=== PATIENT | female | born 1950 ===

== ENCOUNTER 2016-12-04 13:51 | Emergency (ER) | payer MEDICARE, MEDICAID ==
[2016-12-04 14:04] VITALS: TEMP 98; BMI 48.7
--- NOTE | 2016-12-04 14:38 | C.PDOC ---
History Of Present Illness Patient is a 66 y/o F with hx of back problems, presenting with R sided paraspinal back pain. She is also complaining of frequency. Denies trauma. Denies urinary or bowel incontinence. Denies fever. Denies weakness, numbness or tingling. Time Seen by Provider: 12/04/16 14:12 Chief Complaint (Nursing): Back Pain Past Medical History Vital Signs: Last Vital Signs Temp 98 F 12/04/16 14:04 Pulse 70 12/04/16 16:41 Resp 16 12/04/16 16:41 BP 160/85 H 12/04/16 16:41 Pulse Ox 98 12/04/16 16:41 - Medical History PMH: Anxiety, Arthritis, Asthma, CVA, Diabetes, Gastritis, HTN, Hypercholesterolemia, Sleep Apnea Denies: Chronic Kidney Disease Surgical History: Cholecystectomy, Endoscopy Family History: States: Unknown Family Hx - Social History Hx Tobacco Use: No Hx Alcohol Use: No Hx Substance Use: No - Immunization History Hx Tetanus Toxoid Vaccination: No Hx Influenza Vaccination: Yes Hx Pneumococcal Vaccination: No Review Of Systems Constitutional: Negative for: Fever, Chills Cardiovascular: Negative for: Chest Pain Respiratory: Negative for: Cough, Shortness of Breath, SOB with Excertion Gastrointestinal: Negative for: Nausea, Vomiting, Abdominal Pain, Constipation Genitourinary: Positive for: Frequency. Negative for: Dysuria, Incontinence Musculoskeletal: Positive for: Back Pain Skin: Negative for: Rash Neurological: Negative for: Weakness, Numbness, Headache Physical Exam - Physical Exam Appears: Well, Non-toxic, No Acute Distress Skin: Normal Color, Warm, Dry Head: Atraumatic, Normacephalic Eye(s): bilateral: Normal Inspection, PERRL, EOMI Neck: Normal, Normal ROM, Supple Chest: Symmetrical Cardiovascular: Rhythm Regular Respiratory: Normal Breath Sounds, No Rales, No Rhonchi, No Wheezing Gastrointestinal/Abdominal: Soft, No Tenderness, No Mass, No Distention Back: No CVA Tenderness, No Vertebral Tenderness, No Decreased ROM, Muscle Spasm (R paraspinal back) Extremity: Normal ROM Neurological/Psych: Oriented x3, Normal Speech, Normal Cranial Nerves, Normal Motor, Normal Sensation Gait: Steady ED Course And Treatment O2 Sat by Pulse Oximetry: 96 Medical Decision Making Medical Decision Making: UA shows hematuria CT shows "2.1 cm low-density rounded lesion within the medial right inferior hepatic lobe , may be cystic. Recommend further evaluation with ultrasound. Question subtle nodular hepatic contour ; correlate for possibility of cirrhosis. Diverticulosis without CT evidence of acute diverticulitis. Cholecystectomy. " Patient made aware of CT results. She reports that back pain is improved after medication. Patient ambulating around the ED without issue. Instructed to follow-up with PMD Disposition - Disposition Disposition: HOME/ ROUTINE Disposition Time: 16:33 Condition: GOOD Additional Instructions: Follow up with PMD for hepatic lesion found on CT. Return to ED if condition worsens. Take medication as prescribed by PMD for back pain. Prescriptions: Cyclobenzaprine [Flexeril] 5 mg PO TID #20 tab Instructions: Chronic Back Pain (ED) - Clinical Impression Clinical Impression: Low back pain, Hepatic lesion, Hematuria
[2016-12-04 14:53] LABS: SQUAMOUS EPITHIAL 1 /hpf (0-5); URINE BILIRUBIN NEGATIVE (NEGATIVE); URINE BLOOD NEGATIVE (NEGATIVE); URINE CLARITY Clear (Clear); URINE COLOR Yellow (YELLOW); URINE GLUCOSE (UA) NORMAL (Normal); URINE LEUKOCYTE ESTERASE NEG Leu/uL (Negative); URINE NITRATE NEGATIVE (NEGATIVE); URINE PROTEIN 1+ mg/dL (NEGATIVE); URINE UROBILINOGEN NORMAL mg/dL (0.2-1.0)
--- NOTE | 2016-12-04 16:30 | CT ---
PROCEDURE: CT Abdomen and Pelvis without Oral or IV contrast. HISTORY: hematuria COMPARISON: Abdominal ultrasound performed 09/17/15 TECHNIQUE: Contiguous axial images of the abdomen and pelvis. No oral or IV contrast administered. Coronal and Sagittal reformats generated and reviewed. Radiation dose: Total exam DLP = 1281.44 mGy-cm. This CT exam was performed using one or more of the following dose reduction techniques: Automated exposure control, adjustment of the mA and/or kV according to patient size, and/or use of iterative reconstruction technique. FINDINGS: There is limited evaluation of the solid organs without the administration of IV contrast. LOWER THORAX: No visible consolidation, pleural effusion, or pneumothorax. Partially imaged cardiomegaly. LIVER: 2.1 cm low-density rounded lesion within the medial right inferior hepatic lobe (series 3, image 69), measures approximately 2 HU, possibly cystic. Question subtle nodular hepatic contour. GALLBLADDER AND BILE DUCTS: Cholecystectomy. PANCREAS: Fatty atrophy of the pancreas. SPLEEN: Unremarkable unenhanced appearance of the spleen. ADRENALS: Unremarkable unenhanced appearance of the spleen. KIDNEYS AND URETERS: No hydronephrosis or obstructing renal calculus. BLADDER: Decompressed urinary bladder precludes adequate evaluation. REPRODUCTIVE: Uterus is absent, presumably due to hysterectomy. APPENDIX: The appendix appears within normal limits of caliber. No secondary signs of acute appendicitis. BOWEL: The stomach is nondistended. Lack of oral contrast limits evaluation for bowel pathology. The bowel loops appear within normal limits of caliber without evidence of intestinal obstruction. Diverticulosis without CT evidence of acute diverticulitis. PERITONEUM: No significant free fluid. No definite free air. LYMPH NODES: No bulky lymphadenopathy identified. VASCULATURE: No aortic aneurysm. BONES: Degenerative changes of the spine. Vacuum disc phenomenon at L4-L5 and L5-S1. OTHER FINDINGS: 11 mm fat containing umbilical hernia. IMPRESSION: 2.1 cm low-density rounded lesion within the medial right inferior hepatic lobe , may be cystic. Recommend further evaluation with ultrasound. Question subtle nodular hepatic contour ; correlate for possibility of cirrhosis. Diverticulosis without CT evidence of acute diverticulitis. Cholecystectomy. Additional findings as above.
[2016-12-04 16:42] VITALS: BP 160/85; PULSE 70; RESP 16
[2016-12-05 07:40] VITALS: O2SAT 96
== END 2016-12-04 16:41 | disposition home or self-care (01) ==
LOC: C.ER 13:51
DX: K76.9 Liver disease, unspecified (principal); R31.9 Hematuria, unspecified; M54.5 Low back pain
CPT/HCPCS: 74176; 81001; 96372; 99283; J1885

== ENCOUNTER 2017-05-08 14:46 | Emergency (ER) | payer MEDICARE, MEDICAID ==
[2017-05-08 14:46] VITALS: BMI 48.7
[2017-05-08 14:57] VITALS: O2SAT 99
--- NOTE | 2017-05-08 15:08 | C.PDOC ---
History Of Present Illness REQUESTING TX FOR PERSIST ABN OUTPT LAB TESTING. PS S/P OUTPT TESTING ON 09/18 AND 04/25 SHOWING PERSIST +RPR, CHLAMYDIA. PER REFERRAL LETTER 05/02, PT RECEIVED BICILLIN LA 09/2016. PENDING APPT DR CONNOLLY 06/21 "BUT I CAN'T WAIT THAT LONG". OTHERWISE ASYMPT PMD MUSHAYANDEBVU EXAM PSYCH ANXIOUS BUT CALM, CONSOLABLE REMAINDER NEG Time Seen by Provider: 05/08/17 15:01 Chief Complaint (Nursing): Female Genitourinary History Per: Patient History/Exam Limitations: no limitations Onset/Duration Of Symptoms: Days Past Medical History Reviewed: Historical Data, Nursing Documentation, Vital Signs Vital Signs: Last Vital Signs Temp 97.8 F 05/08/17 14:52 Pulse 78 05/08/17 14:52 Resp 16 05/08/17 14:52 BP 170/100 H 05/08/17 14:52 Pulse Ox 99 05/08/17 15:23 - Medical History PMH: Anxiety, Arthritis, Asthma, CVA, Diabetes, Gastritis, HTN, Hypercholesterolemia, Sleep Apnea Surgical History: Cholecystectomy, Endoscopy Family History: States: No Known Family Hx - Social History Hx Tobacco Use: No Hx Alcohol Use: No Hx Substance Use: No - Immunization History Hx Tetanus Toxoid Vaccination: No Hx Influenza Vaccination: Yes Hx Pneumococcal Vaccination: No Review Of Systems Except As Marked, All Systems Reviewed And Found Negative. Respiratory: Negative for: Shortness of Breath Gastrointestinal: Negative for: Nausea, Vomiting, Abdominal Pain Skin: Negative for: Rash Physical Exam - Physical Exam Appears: Non-toxic, No Acute Distress, Other ((+) anxious but calm) Head: Atraumatic, Normacephalic Respiratory: Normal Breath Sounds Back: Normal Inspection Extremity: Normal ROM Neurological/Psych: Oriented x3, Normal Speech ED Course And Treatment O2 Sat by Pulse Oximetry: 99 (RA) Pulse Ox Interpretation: Normal Reevaluation Time: 15:21 Reassessment Condition: Unchanged (PT ADVISED OF D/W DR CONNOLLY. LAST SEX 4 YRS AGO, NO LONGER INVOLVED W PARTNER. DENIES PRIOR TX FOR CHLAMYDIA.) - Physician Consult Information Time Consulting Physician Contacted: 15:14 Physician Contacted: Ian Connolly Outcome Of Conversation: AWARE OF ER FINDINGS: STATES PT CAN WAIT UNTIL EVAL IN JUN. NO ADDITIONAL RPR TESTING NEEDED. ADVISES URINE GC TESTING, CAN BE FU IN OFFICE. Medical Decision Making Medical Decision Making: PLAN: * Chlamydia GC * Zithromycin PO * Rocephin IM Disposition Counseled Patient/Family Regarding: Diagnosis, Need For Followup - Disposition Referrals: [facility] [Outside] [facility] [Outside] Disposition: HOME/ ROUTINE Disposition Time: 15:22 Condition: IMPROVED Additional Instructions: JAILENE ANGELA ESTABLECIDO. Instructions: Chlamydia (ED) Forms: [employer] (Israeli) Print Language: FAROESE - Clinical Impression Clinical Impression: Abnormal blood test - Scribe Statement The provider has reviewed the documentation as recorded by the Melodyibelissa Bryan Provider Attestation: All medical record entries made by the Melodyibe were at my direction and personally dictated by me. I have reviewed the chart and agree that the record accurately reflects my personal performance of the history, physical exam, medical decision making, and the department course for this patient. I have also personally directed, reviewed, and agree with the discharge instructions and disposition.
[2017-05-08] MEDS ORDERED: cefTRIAXone (Rocephin) 250 mg Inj IM STA (15:23)
[2017-05-08 16:38] VITALS: BP 148/91; PULSE 62; RESP 18; TEMP 98.4
== END 2017-05-08 16:38 | disposition home or self-care (01) ==
LOC: C.ER 14:46
DX: Z00.01 Encounter for general adult medical examination with abnormal findings (principal); E11.9 Type 2 diabetes mellitus without complications; E78.00 Pure hypercholesterolemia, unspecified; I10 Essential (primary) hypertension
CPT/HCPCS: 87491; 87591; 96372; 99284; J0696

== ENCOUNTER 2017-05-24 06:57 | Emergency (ER) | payer MEDICARE, MEDICAID ==
[2017-05-24 06:57] VITALS: BMI 48.7
--- NOTE | 2017-05-24 07:49 | C.PDOC ---
History Of Present Illness 66-year-old female, presents to the emergency department with complaints of epigastric abdominal pain since last night, which she states radiates to back and is associated with several episodes of vomiting. Denies chest pain, shortness of breath, diarrhea, fever, recent travel or any other associated symptoms. No other complaints at this time. Time Seen by Provider: 05/24/17 07:35 Chief Complaint (Nursing): Abdominal Pain History Per: Patient History/Exam Limitations: no limitations Onset/Duration Of Symptoms: Days Current Symptoms Are (Timing): Still Present Past Medical History Reviewed: Historical Data, Nursing Documentation, Vital Signs Vital Signs: Last Vital Signs Temp 98.9 F 05/24/17 10:03 Pulse 82 05/24/17 10:03 Resp 18 05/24/17 10:03 BP 158/82 H 05/24/17 10:03 Pulse Ox 99 05/24/17 10:50 - Medical History PMH: Anxiety, Arthritis, Asthma, CVA, Diabetes, Gastritis, HTN, Hypercholesterolemia, Sleep Apnea Surgical History: Cholecystectomy, Endoscopy Family History: States: Unknown Family Hx - Social History Hx Tobacco Use: No Hx Alcohol Use: No Hx Substance Use: No - Immunization History Hx Tetanus Toxoid Vaccination: No Hx Influenza Vaccination: Yes Hx Pneumococcal Vaccination: No Review Of Systems Except As Marked, All Systems Reviewed And Found Negative. Constitutional: Negative for: Fever, Chills Respiratory: Negative for: Shortness of Breath Gastrointestinal: Positive for: Nausea, Vomiting, Abdominal Pain Musculoskeletal: Positive for: Back Pain Neurological: Negative for: Weakness, Numbness, Headache, Dizziness Physical Exam - Physical Exam Appears: Non-toxic, No Acute Distress Skin: Warm, Dry, No Rash Head: Atraumatic, Normacephalic Eye(s): bilateral: Normal Inspection, PERRL Nose: Normal Oral Mucosa: Moist Lips: Normal Appearing Neck: Normal ROM Chest: Symmetrical Cardiovascular: Rhythm Regular, No Murmur Respiratory: Normal Breath Sounds, No Accessory Muscle Use Gastrointestinal/Abdominal: Soft, Tenderness (+mild inconsistent epigastric tenderness ), Other (Obese) Back: No CVA Tenderness, No Paraspinal Tenderness Extremity: Normal ROM Neurological/Psych: Oriented x3, Normal Speech ED Course And Treatment - Laboratory Results Result Diagrams: 05/24/17 08:17 05/24/17 08:17 ECG: Interpreted By Me ECG Rhythm: Sinus Rhythm ECG Interpretation: Normal Interpretation Of ECG: normal axis, normal R wave progression, normal ST-T waves Rate From EC O2 Sat by Pulse Oximetry: 99 (on RA) Pulse Ox Interpretation: Normal Medical Decision Making Medical Decision Making: Plan: * CT Abd/Pel * BNP, CMP, Lipase, SHANELL Panel * CBC * Chest X-Ray * Morphine, Pepcid, IVF, Zofran * Urinalysis * Reassess and Disposition Disposition - Disposition Referrals: Haja Dempsey MD [Staff Provider] - Yvette Bills MD [Staff Provider] - Disposition: HOME/ ROUTINE Disposition Time: 11:56 Condition: GOOD Additional Instructions: Follow up with the medical doctor within 1-2 days. Return if worsened. Prescriptions: Ibuprofen [Motrin] 1 tab PO TID PRN #30 tab PRN Reason: Pain oxyCODONE/Acetaminophen [Percocet 5/325 mg Tab] 1 tab PO QID PRN #10 tab PRN Reason: Pain Tamsulosin [Flomax] 0.4 mg PO DAILY #10 cap Instructions: Renal Colic (GEN) Forms: [employer] (Azerbaijani) - Clinical Impression Clinical Impression: Renal colic - Scribe Statement The provider has reviewed the documentation as recorded by the Scribe (Sarkis Hairston) All medical record entries made by the Scribe were at my direction and personally dictated by me. I have reviewed the chart and agree that the record accurately reflects my personal performance of the history, physical exam, medical decision making, and the department course for this patient. I have also personally directed, reviewed, and agree with the discharge instructions and disposition.
[2017-05-24] MEDS ORDERED: Sodium Chloride 0.9% 1,000 ML IV ONE (08:08)
[2017-05-24 08:22] LABS: BASO % 0.3 % (0.0-2.0); EOS % 0.8 % (0.0-4.0); HEMOGLOBIN 12.5 g/dL (11.0-16.0); LYMPH # 0.7 K/uL (1.0-4.3); LYMPH % 12.9 % (20.0-40.0); MEAN CORPUSCULAR HEMOGLOBIN 25.6 pg (27.0-31.0); MEAN CORPUSCULAR HGB CONC 32.4 g/dL (33.0-37.0); MEAN PLATELET VOLUME 8.7 fL (7.2-11.7); MONO # 0.6 K/uL (0.0-0.8); MONO % 10.8 % (0.0-10.0); NEUT # 4.3 K/uL (1.8-7.0); NEUT % 75.2 % (50.0-75.0); RBC 4.86 Mil/uL (3.80-5.20); RED CELL DISTRIBUTION WIDTH 14.7 % (11.5-14.5); WHITE BLOOD COUNT 5.7 K/uL (4.8-10.8)
[2017-05-24 08:25] LABS: MEAN CELL VOLUME 79.2 fL (81.0-99.0)
[2017-05-24] MEDS ORDERED: Sodium Chloride 0.9% 1,000 ML ONE (08:28)
[2017-05-24 08:43] LABS: ALB/GLOB RATIO 1.2 (1.0-2.1); ALBUMIN 4.1 g/dL (3.5-5.0); ALT/SGPT 29 U/L (9-52); AST/SGOT 19 U/L (14-36); BLOOD UREA NITROGEN 11 mg/dL (7-17); CALCIUM 7.9 mg/dl (8.6-10.4); GFR AFRICAN-AMERICAN > 60; GFR NON-AFRICAN AMERICAN > 60; LIPASE 43 U/L (23-300)
--- NOTE | 2017-05-24 09:05 | RAD ---
Chest x-ray single frontal view History: Cough. Comparison: 08/20/2014 Findings: Mild venous congestion. Cardiomegaly. Degenerative changes in the spine and shoulders. Question loose osteochondral bodies at right glenohumeral joint space. Question mild calcific tendinopathy of the left proximal humerus. Impression: Mild venous congestion. Cardiomegaly. Degenerative changes in the spine and shoulders.
[2017-05-24 10:34] LABS: B-TYPE NATRIURETIC PEPTIDE 316 pg/mL (0-900); CK-MB 0.29 ng/mL (0.0-3.38)
[2017-05-24 10:44] LABS: SQUAMOUS EPITHIAL < 1 /hpf (0-5); URINE BACTERIA RARE (<OCC); URINE BILIRUBIN NEGATIVE (NEGATIVE); URINE BLOOD NEGATIVE (NEGATIVE); URINE CLARITY Clear (Clear); URINE COLOR Straw (YELLOW); URINE GLUCOSE (UA) NORMAL (Normal); URINE LEUKOCYTE ESTERASE NEG Leu/uL (Negative); URINE NITRATE NEGATIVE (NEGATIVE); URINE PROTEIN NEGATIVE (NEGATIVE); URINE UROBILINOGEN NORMAL mg/dL (0.2-1.0)
--- NOTE | 2017-05-24 11:28 | CT ---
PROCEDURE: CT Abdomen and Pelvis without Oral or IV contrast. HISTORY: R flank pain, vomiting COMPARISON: CT abdomen pelvis without contrast performed 12/04/16 TECHNIQUE: Contiguous axial images of the abdomen and pelvis. No oral or IV contrast administered. Coronal and Sagittal reformats generated and reviewed. Radiation dose: Total exam DLP = 1249.67 mGy-cm. This CT exam was performed using one or more of the following dose reduction techniques: Automated exposure control, adjustment of the mA and/or kV according to patient size, and/or use of iterative reconstruction technique. FINDINGS: There is limited evaluation of the solid organs without the administration of IV contrast. LOWER THORAX: No visible consolidation, pleural effusion, or pneumothorax. Partially imaged cardiomegaly. Small hiatal hernia. LIVER: 2.4 cm low-density lesion measuring approximately 3 HU noted within the right hepatic lobe, appears cystic. Mildly nodular hepatic contour. GALLBLADDER AND BILE DUCTS: Cholecystectomy. PANCREAS: Fatty atrophy. SPLEEN: Unremarkable unenhanced appearance. ADRENALS: Unremarkable unenhanced appearance. KIDNEYS AND URETERS: 3 mm calculus at the level of the distal ureter (series 3, image 137) ; calcification was noted in this region on prior study performed 12/04/16 and is suspected to reside adjacent to rather than within the right ureter however this cannot be confirmed on this study. No evidence of hydronephrosis. The left kidney is unremarkable without evidence of hydronephrosis or obstructing calculus. BLADDER: The urinary bladder appears unremarkable. REPRODUCTIVE: Uterus is absent, presumably due to hysterectomy. APPENDIX: The appendix appears within normal limits of caliber. No secondary signs of acute appendicitis. BOWEL: The stomach is nondistended. Lack of oral contrast limits evaluation for bowel pathology. The bowel loops appear within normal limits of caliber without evidence of intestinal obstruction. Diverticulosis without CT evidence of acute diverticulitis. PERITONEUM: No significant free fluid. No definite free air. LYMPH NODES: No bulky lymphadenopathy identified. VASCULATURE: No aortic aneurysm. BONES: Degenerative changes of the spine. OTHER FINDINGS: None. IMPRESSION: 3 mm calculus at the level of the distal ureter (series 3, image 137) ; calcification was noted in this region on prior study performed 12/04/16 and is suspected to reside adjacent to rather than within the right ureter however this cannot be confirmed on this study. No evidence of hydronephrosis. 2.4 cm low-density lesion measuring approximately 3 HU noted within the right hepatic lobe, appears cystic. Mildly nodular hepatic contour. Diverticulosis without CT evidence of acute diverticulitis. Cholecystectomy. Hysterectomy. Additional findings as above.
[2017-05-24 12:29] VITALS: BP 161/90; PULSE 87; RESP 20; TEMP 98.4; O2SAT 96
== END 2017-05-24 13:05 | disposition home or self-care (01) ==
LOC: C.ER 06:57
DX: N20.0 Calculus of kidney (principal)
CPT/HCPCS: 71045; 74176; 80053; 81001; 83690; 83880; 84484; 85025; 96361; 96374; 96375; 99285; J1885; J2270; J2405; J7040

== ENCOUNTER 2017-05-29 06:32 | Day surgery (SDC) | payer MEDICARE, MEDICAID ==
[2017-05-29] MEDS ORDERED: Propofol 10 mg/ml Inj (20 ML) ONE (08:18)
[2017-05-29] MEDS ORDERED: Albuterol HFA 90 mcg/actuation (8 g) ONE (08:22)
--- NOTE | 2017-05-29 08:23 | CP.SDSHP ---
Same Day Surgery H & P - History Proposed Procedure: EGD Pre-Op Diagnosis: SEE NOTES - Previous Medical/Surgical History Cardiac: Hypertension Pulmonary: Asthma, Other Endocrine/Metabolic: Diabetes, Other Neuro: TIA/CVA, Backaches - Allergies Allergies: Allergies No Known Allergies Allergy (Verified 05/24/17 07:15) - Physical Exam General Appearance: N Vital Signs: Vital Signs 05/29/17 06:52 Temperature 97.7 F Pulse Rate 83 Respiratory 20 Rate Blood Pressure 155/95 H O2 Sat by Pulse 100 Oximetry Mental Status: Alert & Oriented x3 Neuro: WNL Heart: Other Lungs: Other GI: WNL - {Optional Preform as Required} Breast: WNL Abdomen: Other Rectal: Other Integument: WNL : WNL Ortho: Other ENT: WNL - Impression Pt. Evaluated Today:Candidate for Anesthesia & Procedure: Yes - Date & Time Time: 08:23 Short Stay Discharge - Short Stay Discharge Admitting Diagnosis/Reason for Visit: DYSPEPSIA Disposition: HOME/ ROUTINE
[2017-05-29] MEDS ORDERED: cefTRIAXone IV 1 gm in Dextros 50 ML IVPB ONE (09:00)
[2017-05-29] MEDS ORDERED: Belladonna-Phenobarbital PO ONE (09:00)
[2017-05-29] MEDS ORDERED: Pantoprazole 40 mg EC Tab PO ONE (09:05)
[2017-05-29 11:19] VITALS: TEMP 97
[2017-05-29 11:22] VITALS: PULSE 77
[2017-05-29 11:34] VITALS: BP 166/98; RESP 18; O2SAT 987
== END 2017-05-29 11:00 | disposition home or self-care (01) ==
LOC: C.ENDO 06:32
PROVIDERS: ATTEND Specialist
DX: K29.00 Acute gastritis without bleeding (principal); K30 Functional dyspepsia; K44.9 Diaphragmatic hernia without obstruction or gangrene; B37.81 Candidal esophagitis
CPT/HCPCS: 43235; 82948; J0696; J2001; J2704; J2930

== ENCOUNTER 2017-09-08 01:11 | Emergency (ER) | payer MEDICARE, MEDICAID ==
[2017-09-08 01:11] VITALS: BMI 48.7
[2017-09-08 01:23] VITALS: RESP 20; TEMP 98.1
[2017-09-08] MEDS ORDERED: Sodium Chloride 0.9% 1,000 ML IV ONE (01:59)
[2017-09-08] MEDS ORDERED: Sodium Chloride 0.9% 1,000 ML ONE (02:10)
[2017-09-08 02:26] LABS: BASO % 0.5 % (0.0-2.0); EOS % 0.6 % (0.0-4.0); HEMOGLOBIN 12.5 g/dL (11.0-16.0); LYMPH # 1.6 K/uL (1.0-4.3); LYMPH % 26.3 % (20.0-40.0); MEAN CELL VOLUME 77.8 fL (81.0-99.0); MEAN CORPUSCULAR HEMOGLOBIN 26.2 pg (27.0-31.0); MEAN CORPUSCULAR HGB CONC 33.7 g/dL (33.0-37.0); MEAN PLATELET VOLUME 7.9 fL (7.2-11.7); MONO # 0.5 K/uL (0.0-0.8); MONO % 8.3 % (0.0-10.0); NEUT % 64.3 % (50.0-75.0); RBC 4.78 Mil/uL (3.80-5.20); RED CELL DISTRIBUTION WIDTH 14.8 % (11.5-14.5); WHITE BLOOD COUNT 6.2 K/uL (4.8-10.8)
[2017-09-08 02:56] LABS: ALB/GLOB RATIO 1.1 (1.0-2.1); ALT/SGPT 18 U/L (9-52); AST/SGOT 22 U/L (14-36); BLOOD UREA NITROGEN 16 mg/dL (7-17); CALCIUM 9.2 mg/dl (8.6-10.4); GFR AFRICAN-AMERICAN > 60; GFR NON-AFRICAN AMERICAN > 60; LIPASE 41 U/L (23-300)
[2017-09-08 02:56] LABS: SQUAMOUS EPITHIAL < 1 /hpf (0-5); URINE BILIRUBIN NEGATIVE (NEGATIVE); URINE BLOOD NEGATIVE (NEGATIVE); URINE CLARITY Clear (Clear); URINE COLOR Straw (YELLOW); URINE GLUCOSE (UA) NORMAL (Normal); URINE LEUKOCYTE ESTERASE NEG Leu/uL (Negative); URINE PROTEIN NEGATIVE (NEGATIVE); URINE UROBILINOGEN NORMAL mg/dL (0.2-1.0)
[2017-09-08] MEDS ORDERED: Alum-Mag Hydrox-Simethicone Susp (30 mL) PO STA (03:24)
[2017-09-08] MEDS ORDERED: Potassium Chloride 20 mEq ER Tab PO STA (03:24)
[2017-09-08] MEDS ORDERED: Potassium Chloride 20 mEq ER Tab PO ONE (03:30)
[2017-09-08] MEDS ORDERED: Alum-Mag Hydrox-Simethicone Susp (30 mL) ONE (03:30)
--- NOTE | 2017-09-08 03:41 | C.PDOC ---
Time Seen by Provider: 09/08/17 01:38 Chief Complaint (Nursing): Abdominal Pain History Per: Patient Onset/Duration Of Symptoms: Hrs (since this afternoon) Current Symptoms Are (Timing): Still Present Severity: Moderate Location Of Pain/Discomfort: Epigastric Radiation Of Pain To:: None Quality Of Discomfort: "Pain" Associated Symptoms: Nausea Alleviating Factors: None Additional History Per: Prior Records Past Medical History Reviewed: Historical Data, Nursing Documentation, Vital Signs Vital Signs: Last Vital Signs Temp 98.1 F 09/08/17 01:19 Pulse 76 09/08/17 01:19 Resp 20 09/08/17 01:19 BP 148/82 09/08/17 01:19 Pulse Ox 97 09/08/17 01:19 - Medical History PMH: Anxiety, Arthritis (PT. USES CANE), Asthma, CVA, Diabetes, Gastritis, HTN, Hypercholesterolemia, Sleep Apnea Surgical History: Cholecystectomy, Endoscopy Family History: States: Unknown Family Hx - Social History Hx Tobacco Use: No Hx Alcohol Use: No Hx Substance Use: No - Immunization History Hx Tetanus Toxoid Vaccination: No Hx Influenza Vaccination: Yes Hx Pneumococcal Vaccination: No Review Of Systems Except As Marked, All Systems Reviewed And Found Negative. Constitutional: Negative for: Fever Cardiovascular: Negative for: Chest Pain Respiratory: Negative for: Shortness of Breath Gastrointestinal: Negative for: Melena, Hematochezia, Hematemesis Genitourinary: Negative for: Dysuria Musculoskeletal: Negative for: Neck Pain, Back Pain Skin: Negative for: Rash Neurological: Negative for: Weakness, Numbness Physical Exam - Physical Exam Appears: Non-toxic, No Acute Distress Skin: Normal Color, Warm, Dry, No Rash Head: Atraumatic, Normacephalic Eye(s): bilateral: Normal Inspection, PERRL, EOMI Neck: Normal ROM, Supple Cardiovascular: Rhythm Regular Respiratory: Normal Breath Sounds, No Accessory Muscle Use Gastrointestinal/Abdominal: Soft, Tenderness (mild epigastric), No Guarding, No Rebound Back: No CVA Tenderness Extremity: Normal ROM Neurological/Psych: Oriented x3, Normal Motor, Normal Sensation ED Course And Treatment - Laboratory Results Result Diagrams: 09/08/17 02:23 09/08/17 02:23 Interpretation Of Abnormal: Mild hypokalemia, otherwise unremarkable. ECG: Interpreted By Me, Viewed By Me ECG Rhythm: Sinus Rhythm, Nonspecific Changes Rate From EC O2 Sat by Pulse Oximetry: 97 Pulse Ox Interpretation: Normal Progress - Interventions Interventions:: Observation, Intravenous fluid - Medications Administered Oral: Antacid, Antiemetic, H-2 raine, Other (KCl) - Data Reviewed Data Reviewed: Lab, EKG, Old records - Patient Status Patient status: Mostly improved - Continuity of Care Discussed patient case with:: Patient, ED Nurse - Patient Plan Patient Plan: Discharge, F/U with PCP, Continue present meds Disposition Counseled Patient/Family Regarding: Studies Performed, Diagnosis, Need For Followup, Rx Given - Disposition Referrals: Haja Dempsey MD [Staff Provider] - Disposition: HOME/ ROUTINE Disposition Time: 03:42 Condition: IMPROVED Additional Instructions: Follow up with your doctor within 1 week for further evaluation and treatment. Return to the ER if you develop fever, vomiting, bloody or black stools, worsening of symptoms or if you have any other concerns. Prescriptions: Metoclopramide [Reglan] 1 tab PO TID PRN #15 tab PRN Reason: Nausea/Vomiting Instructions: Stomach Ache and Stomach Upset Forms: [employer] (Central African) Print Language: TAMAZIGHT - Clinical Impression Clinical Impression: Epigastric abdominal pain
[2017-09-08 04:06] VITALS: BP 1237/92; PULSE 73; O2SAT 100
== END 2017-09-08 04:07 | disposition home or self-care (01) ==
LOC: C.ER 01:11
DX: R10.13 Epigastric pain (principal); I10 Essential (primary) hypertension; E11.9 Type 2 diabetes mellitus without complications; E78.00 Pure hypercholesterolemia, unspecified
CPT/HCPCS: 80053; 81001; 83690; 84484; 85025; 99284; J7040

== ENCOUNTER 2018-01-01 18:00 | Observation (INO) | payer MEDICARE, MEDICAID ==
[2018-01-01 18:31] VITALS: BMI 48.6
[2018-01-01 18:37] LABS: BASO % 0.5 % (0.0-2.0); EOS # 0.1 K/uL (0.0-0.7); EOS % 1.4 % (0.0-4.0); HEMOGLOBIN 12.5 g/dL (11.0-16.0); LYMPH # 2.1 K/uL (1.0-4.3); LYMPH % 40.4 % (20.0-40.0); MEAN CELL VOLUME 79.7 fL (81.0-99.0); MEAN CORPUSCULAR HGB CONC 32.6 g/dL (33.0-37.0); MEAN PLATELET VOLUME 8.4 fL (7.2-11.7); MONO # 0.5 K/uL (0.0-0.8); MONO % 9.8 % (0.0-10.0); NEUT # 2.6 K/uL (1.8-7.0); NEUT % 47.9 % (50.0-75.0); NRBC % 0.1 % (0.0-2.0); RBC 4.81 Mil/uL (3.80-5.20); WHITE BLOOD COUNT 5.3 K/uL (4.8-10.8)
[2018-01-01 18:46] LABS: PROTHROMBIN TIME 11.1 SECONDS (9.7-12.2)
[2018-01-01 18:50] LABS: ALB/GLOB RATIO 1.4 (1.0-2.1); ALBUMIN 4.3 g/dL (3.5-5.0); CALCIUM 9.5 mg/dl (8.6-10.4); GFR NON-AFRICAN AMERICAN > 60; HDL CHOLESTEROL 45 mg/dL (30-70)
[2018-01-01 18:53] LABS: ALT/SGPT 19 U/L (9-52); AST/SGOT 18 U/L (14-36); BLOOD UREA NITROGEN 14 mg/dL (7-17)
[2018-01-01 19:01] LABS: LDL CHOLESTEROL 74 mg/dL (0-129)
--- NOTE | 2018-01-01 19:41 | C.PDOC ---
History Of Present Illness 67 y/o female patient with history of CVA presents to the ED with c/o left sided facial numbness starting 10 pm yesterday. This is the last time well. Left sided numbness radiates to the left neck, shoulder and arm. (+) Residual deficit, left sided weakness of L leg. Patient also reports experiencing headache and dizziness, which she describes as a room spinning sensation. She took Advil and half of blood pressure tablet with no relief in symptoms. Denies fever, chills, shortness of breath, nausea, vomiting, diarrhea, dysuria or rash. Time Seen by Provider: 01/01/18 18:21 Chief Complaint (Nursing): Weakness/Neurological Deficit History Per: Patient History/Exam Limitations: no limitations Onset/Duration Of Symptoms: Days (1) Current Symptoms Are (Timing): Still Present Activity At Onset Of Symptoms: Lying Past Medical History Reviewed: Historical Data, Nursing Documentation, Vital Signs Vital Signs: Last Vital Signs Temp 97.7 F 01/01/18 18:07 Pulse 65 01/01/18 18:07 Resp BP 208/97 H 01/01/18 18:07 Pulse Ox 100 01/01/18 20:04 - Medical History PMH: Anxiety, Arthritis (PT. USES CANE), Asthma, CVA, Diabetes, Gastritis, HTN, Hypercholesterolemia, Sleep Apnea Surgical History: Cholecystectomy, Endoscopy Family History: States: Unknown Family Hx - Social History Hx Tobacco Use: No Hx Alcohol Use: No Hx Substance Use: No - Immunization History Hx Tetanus Toxoid Vaccination: No Hx Influenza Vaccination: Yes Hx Pneumococcal Vaccination: No Review Of Systems Constitutional: Negative for: Fever, Chills Cardiovascular: Negative for: Chest Pain Respiratory: Negative for: Shortness of Breath Gastrointestinal: Negative for: Nausea, Vomiting, Diarrhea Genitourinary: Negative for: Dysuria Neurological: Positive for: Numbness (Left sided numbness), Headache, Dizziness. Negative for: Change in Speech, Confusion, Seizures, Altered Mental Status Physical Exam - Physical Exam Additional Physical Exam Comments: Constitutional: No acute distress. Head: Normocephalic. Atraumatic. Eyes: PERRL. ENT: Moist mucous membranes. Neck: Supple. No bruit. No pulsatile mass Cardiovascular: Regular rate. Radial pulse 2+ bilaterally. Chest: No tenderness. Respiratory: Clear to auscultation bilaterally. GI: Soft. Nontender. Nondistended. Back: No CVA tenderness. Musculoskeletal: No tenderness or swelling of extremities. Skin: No rash. Neurologic: Alert, no focal deficit. Subjective decrease sensation to the left side of face. ED Course And Treatment - Laboratory Results Result Diagrams: 01/01/18 18:32 01/01/18 18:32 ECG Rhythm: Sinus Rhythm O2 Sat by Pulse Oximetry: 100 (RA) Pulse Ox Interpretation: Normal NIHSS Stroke Scale 2 - Date/Time Evaluation Performed Date Performed: 01/01/18 Time Performed: 18:20 When Was NIHSS Performed: Baseline - How Severe is the Stroke Level of Consciousness: 0=Alert LOC to Questions: 0=Both comments correct LOC to commands: 0=Obeys both correctly Best Gaze: 0=Normal Visual: 0=No visual loss Facial: 0=Normal Motor Arm - Left: 0=No drift Motor Arm - Right: 0=No drift Motor Leg - Left: 2=Falls before 5 sec (baseline, not new today) Motor Leg - Right: 0=No drift Limb Ataxia: 0=Absent Sensory: 1=Mild to moderate loss Best Language: 0=No aphasia Dysarthia: 0=Normal articulation Extinction & Inattention (Neglect): 0=Normal, no object Score: 3 Severity Of Stroke: 0 = No Stroke rTPA Inclusion/Exclusion - Refusal of Treatment Patient Refused Treatment: No - Inclusion Criteria for Altepase Patient is 18 years or Older: Yes The Clinical Diagnosis of Ischemic Stroke That is Causing a Potentially Disabling Neurological Deficit: Yes Time of Onset is Well Established to be Less Than 270 Minute Before Treatment Would Begin: No Risk/Benefit Discussed With Patient/Family Member Present: Yes Medical Decision Making Medical Decision Making: Impression: 67 y/o female patient with left sided facial numbness radiating to left neck, arm and shoulder. Differential Diagnosis Plan: CT Head EKG Labs EKG Results: Normal Sinus Rhythm. [address] Elevation. No T-Wave Inversion. CT Head Results: IMPRESSION: There is mild atrophy and chronic white matter ischemic changes, with no evidence of an acute intracranial abnormality. CXR Results: No acute disease. Case with discussed with Dr. Gagnon, Neurologist, who agrees with management and recommends an MRI to be completed tomorrow morning. Dr. Dempsey accepts patient to his service. Disposition Discussed With : Susana Gagnon - Disposition Disposition: HOSPITALIZED Disposition Time: 20:26 Condition: FAIR - POA Core Measure Indicators: Code Stroke - Clinical Impression Clinical Impression: Hemiparesthesia - Scribe Statement The provider has reviewed the documentation as recorded by the Melodyibe Ko Hardwick Provider Attestation: All medical record entries made by the Melodyibe were at my direction and personally dictated by me. I have reviewed the chart and agree that the record accurately reflects my personal performance of the history, physical exam, medical decision making, and the department course for this patient. I have also personally directed, reviewed, and agree with the discharge instructions and disposition.
[2018-01-01] MEDS: Sodium Chloride 0.9% 1,000 ML IV SCH (20:05)
--- NOTE | 2018-01-01 20:58 | RAD ---
HISTORY: Code Stroke COMPARISON: Chest x-ray performed 05/24/17 TECHNIQUE: Chest, one view. FINDINGS: Examination limited by habitus. LUNGS: Mild pulmonary venous congestion. Bibasilar atelectasis. No focal consolidation. Please note that chest x-ray has limited sensitivity for the detection of pulmonary masses. PLEURA: No significant pleural effusion identified. No definite pneumothorax . CARDIOVASCULAR: Cardiomegaly. OSSEOUS STRUCTURES: No acute osseous abnormality identified. VISUALIZED UPPER ABDOMEN: Unremarkable. OTHER FINDINGS: None. IMPRESSION: Mild pulmonary venous congestion. Bibasilar atelectasis.
--- NOTE | 2018-01-01 21:33 | CT ---
Date of service: 01/01/2018 PROCEDURE: CT HEAD WITHOUT CONTRAST. HISTORY: Code Stroke COMPARISON: None available. TECHNIQUE: Axial computed tomography images were obtained through the head/brain without intravenous contrast. Radiation dose: Total exam DLP = 843.41 mGy-cm. This CT exam was performed using one or more of the following dose reduction techniques: Automated exposure control, adjustment of the mA and/or kV according to patient size, and/or use of iterative reconstruction technique. FINDINGS: HEMORRHAGE: No intracranial hemorrhage. BRAIN: Diffuse atrophy with prominence of the ventricles and sulci noted. No mass effect or edema. Intracranial atherosclerosis Scattered periventricular and subcortical white matter hypodensities, which are nonspecific, but often seen with chronic microvascular ischemic disease. VENTRICLES: No hydrocephalus. CALVARIUM: Unremarkable. PARANASAL SINUSES: Unremarkable as visualized. No significant inflammatory changes. MASTOID AIR CELLS: Unremarkable as visualized. No inflammatory changes. OTHER FINDINGS: None. IMPRESSION: Mild atrophy. Nonspecific white matter changes. No acute intracranial pathology identified. Please note that MRI with diffusion imaging is more sensitive in the detection of acute ischemic event. Findings were discussed by evelyn Cantu with Dr. Valenzuela on 01/01/18 at 6:53 p.m.. Preliminary impression was provided by virtual radiologic.
[2018-01-01] MEDS ORDERED: Oxycodone/Acetaminophen 5/325 mg Tab PO PRN (21:49)
--- NOTE | 2018-01-01 22:17 | CP.PCM.HP ---
Present on Admission - Present on Admission Any Indicators Present on Admission: No Past Patient History - Infectious Disease Hx of Infectious Diseases: None - Past Medical History & Family History Past Medical History?: Yes - Past Social History Smoking Status: Never Smoked - CARDIAC Hx Hypercholesterolemia: Yes Hx Hypertension: Yes - PULMONARY Hx Asthma: Yes Hx Sleep Apnea: Yes - NEUROLOGICAL Hx Neurological Disorder: Yes HX Cerebrovascular Accident: Yes (15 yrs ago, RESIDUAL LEFT SIDED WEAKNESS) - HEENT Hx HEENT Problems: No - RENAL Hx Chronic Kidney Disease: No - ENDOCRINE/METABOLIC Hx Endocrine Disorders: Yes Hx Diabetes Mellitus Type 2: Yes (NOT ON MEDS) - HEMATOLOGICAL/ONCOLOGICAL Hx Blood Disorders: No - INTEGUMENTARY Hx Dermatological Problems: No - MUSCULOSKELETAL/RHEUMATOLOGICAL Hx Arthritis: Yes (PT. USES CANE) - GASTROINTESTINAL Hx Gastritis: Yes - GENITOURINARY/GYNECOLOGICAL Hx Genitourinary Disorders: No - PSYCHIATRIC Hx Anxiety: Yes Hx Substance Use: No - SURGICAL HISTORY Hx Cholecystectomy: Yes - ANESTHESIA Hx Anesthesia: Yes Hx Anesthesia Reactions: Yes (VOMITING, NAUSEA) Hx Malignant Hyperthermia: No Meds Allergies/Adverse Reactions: Allergies Allergy/AdvReac Type Severity Reaction Status Date / Time No Known Allergies Allergy Verified 09/08/17 01:23 Results - Vital Signs Recent Vital Signs: Last Vital Signs Temp 97.7 F 01/01/18 18:07 Pulse 65 01/01/18 18:07 Resp BP 208/97 H 01/01/18 18:07 Pulse Ox 100 01/01/18 20:27 - Labs Result Diagrams: 01/01/18 18:32 01/01/18 18:32 Labs: Laboratory Results - last 24 hr 01/01/18 01/01/18 01/01/18 18:11 18:22 18:32 WBC 5.3 RBC 4.81 Hgb 12.5 Hct 38.3 MCV 79.7 L MCH 26.0 L MCHC 32.6 L RDW 15.0 H Plt Count 306 MPV 8.4 Neut % (Auto) 47.9 L Lymph % (Auto) 40.4 H Bell % (Auto) 9.8 Eos % (Auto) 1.4 Baso % (Auto) 0.5 Neut # (Auto) 2.6 Lymph # (Auto) 2.1 Bell # (Auto) 0.5 Eos # (Auto) 0.1 Baso # (Auto) 0.0 PT INR APTT Sodium Potassium Chloride Carbon Dioxide Anion Gap BUN Creatinine Est GFR ( Amer) Est GFR (Non-Af Amer) POC Glucose (mg/dL) 115 H Random Glucose Hemoglobin A1c Calcium Total Bilirubin AST ALT Alkaline Phosphatase Troponin I Total Protein Albumin Globulin Albumin/Globulin Ratio Triglycerides Cholesterol LDL Cholesterol Direct HDL Cholesterol Blood Type A POSITIVE Antibody Screen Negative 01/01/18 01/01/18 01/01/18 18:32 18:32 18:32 WBC RBC Hgb Hct MCV MCH MCHC RDW Plt Count MPV Neut % (Auto) Lymph % (Auto) Bell % (Auto) Eos % (Auto) Baso % (Auto) Neut # (Auto) Lymph # (Auto) Bell # (Auto) Eos # (Auto) Baso # (Auto) PT 11.1 INR 1.0 APTT 38 H Sodium 144 Potassium 3.8 Chloride 107 Carbon Dioxide 26 Anion Gap 16 BUN 14 Creatinine 0.7 Est GFR ( Amer) > 60 Est GFR (Non-Af Amer) > 60 POC Glucose (mg/dL) Random Glucose 127 H Hemoglobin A1c 6.0 Calcium 9.5 Total Bilirubin 0.4 AST 18 ALT 19 Alkaline Phosphatase 96 Troponin I < 0.0120 Total Protein 7.4 Albumin 4.3 Globulin 3.1 Albumin/Globulin Ratio 1.4 Triglycerides 116 Cholesterol 155 LDL Cholesterol Direct 74 HDL Cholesterol 45 Blood Type Antibody Screen
[2018-01-01] MEDS: (Novolin R) Insulin Human Regular 100 units/ml vial SC SCH (23:19)
[2018-01-02] MEDS: Sodium Chloride 0.9% 1,000 ML IV SCH (04:30)
--- NOTE | 2018-01-02 05:01 | PN ---
Copied To: Haja Dempsey MD Attending MD: Haja Dempsey MD DATE: 01/01/2018 CHIEF COMPLAINT: Left facial numbness, weakness, headache, and dizziness x1 day. SUBJECTIVE: The patient is a 67-year-old female, morbidly obese with a history of type 2 diabetes, hypertension, hyperlipidemia, osteoarthritis, anxiety disorder, gastroesophageal reflux disease, nonsmoker, lives alone. She is compliant with her diet, medications, and followup. There are no long-term complication of diabetes. The patient is not nephropathic, not neuropathic. Denies visual status. She is ambulatory with the help of a cane. She is independent in activities of daily living. She came in with one day history of left-sided facial numbness along with that she has some ear pain, neck pain, and numbness in the left arm and along with that, she denies any history of injury. She denies any history of cough, sore throat, or runny nose. There is no history of trauma or fall. The patient denies any history of seizure or involuntary movement. She denies any tingling, numbness, or paraesthesia. She denies any nausea, vomiting, or diarrhea. She denies any polyuria or polydipsia. She denies nasal congestion. She denies any history of diarrhea, but she has tingling and numbness in the feet. She gets joint pain all over the joints in the body. CURRENT MEDICATIONS AT HOME: She is on Percocet, Xanax, Flomax, omeprazole, Toprol-XL, Reglan, Diovan, Nasonex, Bentyl. SOCIAL HISTORY: Nonsmoker. . Lives alone. FAMILY HISTORY: Noncontributory. ALLERGIES: UNKNOWN. PHYSICAL EXAMINATION: GENERAL: An elderly female, in no acute distress. She is anxious. VITAL SIGNS: BP 208/97, pulse 65, respiratory rate 20, temperature 97.7. SKIN: No bruises, no rashes, no purpura, but has hyperpigmentation spots on the face. HEENT EXAM: Atraumatic and normocephalic. Negative pallor. Negative jaundice. Extraocular movements are intact. NECK: Supple. Flat neck vein. No JVD. No lymph nodes. No thyromegaly. No carotid bruit. CHEST WALL: Bilaterally symmetrical expansion. No masses. BREASTS: No masses. LUNGS: Bilaterally clear. No rales. No rhonchi. CARDIOVASCULAR: PMI not localized. S1, S2 are regular. No heave. No thrill. ABDOMEN: Soft and nontender. Positive bowel sounds. RECTAL: No mass. No bleeding. EXTREMITIES: +2 nonpitting edema. No clubbing, cyanosis. CENTRAL NERVOUS SYSTEM: Awake, alert, oriented x3. Cranial nerves II-XII are normal. Power 5/5 x4. Plantars are downgoing. Left side face is numb. ASSESSMENT: 1. Rule out transient ischemic attack, rule out cerebrovascular accident. 2. Type 2 diabetes. 3. Uncontrolled hypertension. 4. Osteoarthritis. PLAN: Neuro checks. Neurology evaluation. MRI. Carotid Doppler. Haja Dempsey MD
[2018-01-02] MEDS: (Novolin R) Insulin Human Regular 100 units/ml vial SC SCH ×3 (07:55→21:23)
[2018-01-02] MEDS: Metoprolol Succinate 50 mg XL Tab PO SCH (09:58)
[2018-01-02] MEDS: Enoxaparin 40 mg Syringe SC SCH (09:59)
[2018-01-02] MEDS ORDERED: Pantoprazole 40 mg EC Tab PO SCH (10:00)
--- NOTE | 2018-01-02 12:11 | CP.PCM.CON ---
History of Present Illness - History of Present Illness History of Present Illness: 67 yr old woman who is here for numbness of left face with old stroke affecting the left arm and leg, and came in as a code stroke. She has a history of Past Patient History - Infectious Disease Hx of Infectious Diseases: None - Past Medical History & Family History Past Medical History?: Yes - Past Social History Smoking Status: Never Smoked - CARDIAC Hx Hypercholesterolemia: Yes Hx Hypertension: Yes - PULMONARY Hx Asthma: Yes Hx Sleep Apnea: Yes - NEUROLOGICAL Hx Neurological Disorder: Yes HX Cerebrovascular Accident: Yes (15 yrs ago, RESIDUAL LEFT SIDED WEAKNESS) - HEENT Hx HEENT Problems: No - RENAL Hx Chronic Kidney Disease: No - ENDOCRINE/METABOLIC Hx Endocrine Disorders: Yes Hx Diabetes Mellitus Type 2: Yes (NOT ON MEDS) - HEMATOLOGICAL/ONCOLOGICAL Hx Blood Disorders: No - INTEGUMENTARY Hx Dermatological Problems: No - MUSCULOSKELETAL/RHEUMATOLOGICAL Hx Arthritis: Yes (PT. USES CANE) - GASTROINTESTINAL Hx Gastritis: Yes - GENITOURINARY/GYNECOLOGICAL Hx Genitourinary Disorders: No - PSYCHIATRIC Hx Anxiety: Yes Hx Substance Use: No - SURGICAL HISTORY Hx Cholecystectomy: Yes - ANESTHESIA Hx Anesthesia: Yes Hx Anesthesia Reactions: Yes (VOMITING, NAUSEA) Hx Malignant Hyperthermia: No Meds Allergies/Adverse Reactions: Allergies Allergy/AdvReac Type Severity Reaction Status Date / Time No Known Allergies Allergy Verified 09/08/17 01:23 - Medications Medications: Current Medications Alprazolam (Xanax) 0.5 mg PO BID [facility] Last Admin: 01/02/18 09:57 Dose: 0.5 mg Aspirin (Aspirin Chewable) 81 mg PO DAILY [facility] Last Admin: 01/02/18 09:58 Dose: 81 mg Enoxaparin Sodium (Lovenox) 40 mg SC DAILY [facility] Last Admin: 01/02/18 09:59 Dose: 40 mg Sodium Chloride (Sodium Chloride 0.9%) 1,000 mls @ 100 mls/hr IV .Q10H [facility] Last Admin: 01/02/18 04:30 Dose: 100 mls/hr Insulin Human Regular (Novolin R) 0 unit SC ACHS [facility] PRN Reason: Protocol Last Admin: 01/02/18 07:55 Dose: Not Given Losartan Potassium (Cozaar) 100 mg PO DAILY [facility] Last Admin: 01/02/18 09:58 Dose: 100 mg Metoclopramide HCl (Reglan) 10 mg PO TID PRN PRN Reason: Nausea/Vomiting Metoprolol Succinate (Toprol Xl) 50 mg PO DAILY [facility] Last Admin: 01/02/18 09:58 Dose: 50 mg Oxycodone/Acetaminophen (Percocet 5/325 Mg Tab) 1 tab PO QID PRN PRN Reason: Pain Stop: 01/04/18 21:50 Pantoprazole Sodium (Protonix Ec Tab) 40 mg PO DAILY [facility] Last Admin: 01/02/18 09:58 Dose: 40 mg Rosuvastatin Calcium (Crestor) 10 mg PO HS [facility] Last Admin: 01/01/18 23:19 Dose: 10 mg Tamsulosin HCl (Flomax) 0.4 mg PO DAILY [facility] Last Admin: 01/02/18 09:59 Dose: 0.4 mg Results - Vital Signs Recent Vital Signs: Last Vital Signs Temp 97.9 F 01/02/18 11:50 Pulse 57 L 01/02/18 11:50 Resp 20 01/02/18 11:50 BP 162/89 H 01/02/18 11:50 Pulse Ox 98 01/02/18 09:10 - Labs Result Diagrams: 01/01/18 18:32 01/01/18 18:32 Labs: Laboratory Results - last 24 hr 01/01/18 01/01/18 01/01/18 18:11 18:22 18:32 WBC 5.3 RBC 4.81 Hgb 12.5 Hct 38.3 MCV 79.7 L MCH 26.0 L MCHC 32.6 L RDW 15.0 H Plt Count 306 MPV 8.4 Neut % (Auto) 47.9 L Lymph % (Auto) 40.4 H Crockett % (Auto) 9.8 Eos % (Auto) 1.4 Baso % (Auto) 0.5 Neut # (Auto) 2.6 Lymph # (Auto) 2.1 [place] # (Auto) 0.5 Eos # (Auto) 0.1 Baso # (Auto) 0.0 PT INR APTT Sodium Potassium Chloride Carbon Dioxide Anion Gap BUN Creatinine Est GFR ( Amer) Est GFR (Non-Af Amer) POC Glucose (mg/dL) 115 H Random Glucose Hemoglobin A1c Calcium Total Bilirubin AST ALT Alkaline Phosphatase Troponin I Total Protein Albumin Globulin Albumin/Globulin Ratio Triglycerides Cholesterol LDL Cholesterol Direct HDL Cholesterol Blood Type A POSITIVE Antibody Screen Negative 01/01/18 01/01/18 01/01/18 18:32 18:32 18:32 WBC RBC Hgb Hct MCV MCH MCHC RDW Plt Count MPV Neut % (Auto) Lymph % (Auto) [place] % (Auto) Eos % (Auto) Baso % (Auto) Neut # (Auto) Lymph # (Auto) [place] # (Auto) Eos # (Auto) Baso # (Auto) PT 11.1 INR 1.0 APTT 38 H Sodium 144 Potassium 3.8 Chloride 107 Carbon Dioxide 26 Anion Gap 16 BUN 14 Creatinine 0.7 Est GFR ( Amer) > 60 Est GFR (Non-Af Amer) > 60 POC Glucose (mg/dL) Random Glucose 127 H Hemoglobin A1c 6.0 Calcium 9.5 Total Bilirubin 0.4 AST 18 ALT 19 Alkaline Phosphatase 96 Troponin I < 0.0120 Total Protein 7.4 Albumin 4.3 Globulin 3.1 Albumin/Globulin Ratio 1.4 Triglycerides 116 Cholesterol 155 LDL Cholesterol Direct 74 HDL Cholesterol 45 Blood Type Antibody Screen 01/01/18 01/02/18 01/02/18 22:39 07:10 11:14 WBC RBC Hgb Hct MCV MCH MCHC RDW Plt Count MPV Neut % (Auto) Lymph % (Auto) [place] % (Auto) Eos % (Auto) Baso % (Auto) Neut # (Auto) Lymph # (Auto) [place] # (Auto) Eos # (Auto) Baso # (Auto) PT INR APTT Sodium Potassium Chloride Carbon Dioxide Anion Gap BUN Creatinine Est GFR ( Amer) Est GFR (Non-Af Amer) POC Glucose (mg/dL) 114 H 102 106 Random Glucose Hemoglobin A1c Calcium Total Bilirubin AST ALT Alkaline Phosphatase Troponin I Total Protein Albumin Globulin Albumin/Globulin Ratio Triglycerides Cholesterol LDL Cholesterol Direct HDL Cholesterol Blood Type Antibody Screen
--- NOTE | 2018-01-02 14:00 | VASCLAB ---
Date of service: 01/02/2018 PROCEDURE: HISTORY: Carotid stenosis COMPARISON: None available. TECHNIQUE: Grayscale and duplex Doppler evaluation of the cervical carotid and vertebral arteries were performed. The common carotid, carotid bifurcations and cervical Internal Carotid Artery (ICA) and proximal External Carotid Artery (ECA) were evaluated. The vertebral arteries were evaluated for gross patency and flow direction. Report prepared by Ian Mckinnon, BS, RVT FINDINGS: RIGHT CAROTID ARTERIES: 1. Common Carotid Artery: No significant focal plaque formation of the right common carotid artery. Maximum Peak Systolic velocity: 69 cm/sec: End-diastolic velocity 16 cm/sec. 2. Carotid Bifurcation: plaque formation. Maximum Peak Systolic velocity: 60 cm/sec: End-diastolic velocity 17 cm/sec. 3. Internal Carotid Artery: Plaque description: 3.1. Proximal Segment: Peak systolic velocity 70 cm/sec: End-diastolic velocity 22 cm/sec - % stenosis 0-15% 3.2. Middle Segment: Peak systolic velocity 76 cm/sec: End-diastolic velocity 30 cm/sec - % stenosis 0-15% 3.3. Distal Segment: Peak systolic velocity 46 cm/sec: End-diastolic velocity 15 cm/sec - % stenosis 0-15% 4. External Carotid Artery: No significant focal plaque formation. Peak systolic velocity 71 cm/sec 5. ICA/CCA Ratio: 1.3 LEFT CAROTID ARTERIES: 1. Common Carotid Artery: No significant focal plaque formation of the left common carotid artery. Maximum Peak Systolic velocity: 64 cm/sec: End-diastolic velocity 16 cm/sec. 2. Carotid Bifurcation: plaque formation. Maximum Peak Systolic velocity: 43 cm/sec: End-diastolic velocity 15 cm/sec. 3. Internal Carotid Artery: Plaque description: 3.1. Proximal Segment: Peak systolic velocity 64 cm/sec: End-diastolic velocity 20 cm/sec - % stenosis 0-15% 3.2. Middle Segment: Peak systolic velocity 66 cm/sec: End-diastolic velocity 22 cm/sec - % stenosis 0-15% 3.3. Distal Segment: Peak systolic velocity 66 cm/sec: End-diastolic velocity 28 cm/sec - % stenosis 0-15% 4. External Carotid Artery: No significant focal plaque formation. Peak systolic velocity 83 cm/sec 5. ICA/CCA Ratio: 1.1 VERTEBRAL ARTERIES: 1. Right Vertebral Artery: The right vertebral artery flow direction is antegrade. 2. Left Vertebral Artery: The left vertebral artery flow direction is antegrade. OTHER FINDINGS: 1. Right Brachial Blood pressure: 200 mmHg. 2. Left Brachial Blood pressure: 210 mmHg. IMPRESSION: RIGHT: Duplex scan does not suggest hemodynamically significant stenosis of the right extracranial carotid arteries. LEFT: Duplex scan does not suggest hemodynamically significant stenosis of the left extracranial carotid arteries.
--- NOTE | 2018-01-02 16:46 | CT ---
Date of service: 01/02/2018 PROCEDURE: CT HEAD WITHOUT CONTRAST. HISTORY: follow up r/on stroke COMPARISON: Noncontrast head CT performed 01/01/18 TECHNIQUE: Axial computed tomography images were obtained through the head/brain without intravenous contrast. Radiation dose: Total exam DLP = 1072.58 MGy-cm. This CT exam was performed using one or more of the following dose reduction techniques: Automated exposure control, adjustment of the mA and/or kV according to patient size, and/or use of iterative reconstruction technique. FINDINGS: Streak artifact obscures evaluation of the skullbase. HEMORRHAGE: No intracranial hemorrhage. BRAIN: Diffuse atrophy with prominence of the ventricles and sulci noted. No mass effect or edema. Small bilateral basal ganglia type lacunar infarcts. Scattered periventricular and subcortical white matter hypodensities, which are nonspecific, but often seen with chronic microvascular ischemic disease. Please note that MRI with diffusion imaging is more sensitive in the detection of acute ischemic event. VENTRICLES: No hydrocephalus. CALVARIUM: Unremarkable. PARANASAL SINUSES: Unremarkable as visualized. No significant inflammatory changes. MASTOID AIR CELLS: Unremarkable as visualized. No inflammatory changes. OTHER FINDINGS: None. IMPRESSION: Generalized atrophy. Small chronic appearing bilateral basal ganglia lacunar type infarcts ; small hyperacute lacunar infarct cannot be excluded. If indicated, recommend MRI for further evaluation. Findings discussed with HODA Knox on 01/02/18 at 4:23 p.m.
[2018-01-02] MEDS: Carboxymethylcellulose 1% Ophth Soln OU SCH (19:00)
[2018-01-02] MEDS: Chloroxylenol/HC/Pramoxine 10 ml Otic Soln AU SCH ×2 (19:00→21:22)
--- NOTE | 2018-01-02 23:13 | CP.PCM.PN ---
Objective - Vital Signs/Intake and Output Vital Signs (last 24 hours): Temp Pulse Resp BP Pulse Ox 98.0 F 58 L 22 146/89 98 01/02/18 15:29 01/02/18 15:29 01/02/18 15:29 01/02/18 15:29 01/02/18 15:29 Intake and Output: 01/02/1818 18:59 06:59 Intake Total 1050 Balance 1050 - Medications Medications: Current Medications Acetaminophen (Tylenol 325mg Tab) 650 mg PO Q6 PRN PRN Reason: Pain, moderate (4-7) Last Admin: 01/02/18 16:53 Dose: 650 mg Alprazolam (Xanax) 0.5 mg PO BID [facility] Last Admin: 01/02/18 18:51 Dose: 0.5 mg Artificial Tears (Artificial Tears Refresh Celluvisc) 0 ml OU BID [facility] Last Admin: 01/02/18 19:00 Dose: Not Given Aspirin (Aspirin Chewable) 81 mg PO DAILY [facility] Last Admin: 01/02/18 09:58 Dose: 81 mg Clopidogrel Bisulfate (Plavix) 75 mg PO DAILY [facility] Last Admin: 01/02/18 13:38 Dose: 75 mg Enoxaparin Sodium (Lovenox) 40 mg SC DAILY [facility] Last Admin: 01/02/18 09:59 Dose: 40 mg Famotidine (Pepcid) 20 mg PO BID [facility] Last Admin: 01/02/18 18:51 Dose: 20 mg Hydrocortisone/Pramoxine (Cortic Ear Drops) 0.25 ml AU QID [facility] Last Admin: 01/02/18 21:22 Dose: Not Given Sodium Chloride (Sodium Chloride 0.9%) 1,000 mls @ 100 mls/hr IV .Q10H [facility] Last Admin: 01/02/18 04:30 Dose: 100 mls/hr Insulin Human Regular (Novolin R) 0 unit SC ACHS [facility] PRN Reason: Protocol Last Admin: 01/02/18 21:23 Dose: Not Given Losartan Potassium (Cozaar) 100 mg PO DAILY [facility] Last Admin: 01/02/18 09:58 Dose: 100 mg Metoclopramide HCl (Reglan) 10 mg PO TID PRN PRN Reason: Nausea/Vomiting Metoprolol Succinate (Toprol Xl) 50 mg PO DAILY [facility] Last Admin: 01/02/18 09:58 Dose: 50 mg Rosuvastatin Calcium (Crestor) 10 mg PO HS [facility] Last Admin: 01/02/18 21:21 Dose: 10 mg Fluticasone/Salmeterol (Advair Diskus 250/50) 1 puff INH RQ12 [facility] Tamsulosin HCl (Flomax) 0.4 mg PO DAILY [facility] Last Admin: 01/02/18 09:59 Dose: 0.4 mg - Labs Labs: 01/01/18 18:32 01/01/18 18:32 PT 11.1 SECONDS (9.7-12.2) 01/01/18 18:32 INR 1.0 01/01/18 18:32 APTT 38 SECONDS (21-34) H 01/01/18 18:32
--- NOTE | 2018-01-02 23:37 | CARD ---
APPROVED REPORT Date of service: 01/01/2018 EKG Measurement Heart [id number] <Conclusion> Sinus rhythm with 1st degree AV block Otherwise normal ECG
[2018-01-03 00:16] VITALS: RESP 20
[2018-01-03] MEDS: Sodium Chloride 0.9% 1,000 ML IV SCH ×4 (00:30→13:00)
[2018-01-03] MEDS ORDERED: Fluticasone-Salmeterol 250-50mcg Diskus INH SCH (08:00)
[2018-01-03] MEDS: (Novolin R) Insulin Human Regular 100 units/ml vial SC SCH ×2 (08:00→11:40)
[2018-01-03 08:11] VITALS: O2SAT 99
--- NOTE | 2018-01-03 08:31 | PN ---
Copied To: Haja Dempsey MD Attending MD: Haja Dempsey MD DATE: 01/02/2018 SUBJECTIVE: The patient still had some tingling on the left side of the face. She has left earache, and she has irritation in the eyes. PHYSICAL EXAMINATION: VITAL SIGNS: Blood pressure is 146/89, pulse 58, respiratory rate 20, temperature 98. LUNGS: Clear. CVS: S1 and S2 regular. ABDOMEN: Soft. FAMILY SERVICES COORDINATOR: Awake, alert, oriented x3. Cranial nerve II through XII are normal. Power 5/5 x4. Plantars are downgoing. ASSESSMENT: 1. Left-sided facial numbness. The patient MRI. We will treat the patient symptomatically. 2. Diabetes. 3. Hypertension. 4. Anxiety and depression. PLAN: Continue current medication. Monitor the patient. Haja Dempsey MD
[2018-01-03] MEDS: Carboxymethylcellulose 1% Ophth Soln OU SCH (10:00)
[2018-01-03] MEDS: Chloroxylenol/HC/Pramoxine 10 ml Otic Soln AU SCH ×2 (10:05→14:16)
[2018-01-03] MEDS: Metoprolol Succinate 50 mg XL Tab PO SCH (10:26)
[2018-01-03] MEDS: Enoxaparin 40 mg Syringe SC SCH (10:27)
--- NOTE | 2018-01-03 15:22 | CP.PCM.PN ---
Subjective - Date & Time of Evaluation Date of Evaluation: 01/03/18 Time of Evaluation: 15:22 - Subjective Subjective: PT CLEARED FOR D/C HOME TODAY PER DR. OH. I ALSO SPOKE WITH DR. AMATO, NEURO , AND SHE CLEARED PT FOR D/C. RX GIVEN FOR EYE AND EAR GTTS, AND ASA. DISCUSSED D/C PLAN, RX, AND F/U WITH PT AND BROTHER AT BEDSIDE. ALL CONCERNS ADDRESSED. NO FURTHER ORDERS. - SEGUIMIENTO CON EL DR. FANNY TIERNEY (BR[facility] [place] EN LA OFICINA SEGN SE DISCUTI CON EL DR. OH. LA INFORMACIN DE LA OFICINA DE NIALL ES: [phone] [place], [place] [id number] -CONTINUAR LOS MEDICAMENTOS CASEROS IRINA HABITUALMENTE. -START TOMANDO ASHLEE ASPIRINA PARA BEBS ASHLEE VEZ AL DA SEGN LO PRESCRITO. -EL IVONNE Y EL ODO GOTA EXACTAMENTE IRINA SE PRESCRIBE. -PARA MS PREGUNTAS, CONTACTE A DR. OH. -FOLLOW UP WITH DR. FANNY TIERNEY (EARS, NOSE, THROAT DOCTOR) IN THE OFFICE DISCUSSED WITH DR. OH. DR. TIERNEY'S OFFICE INFORMATION IS: [phone] [place] [id number] -CONTINUE HOME MEDICATIONS USUAL. -START TAKING A BABY ASPIRIN ONCE A DAY PRESCRIBED. -TAKE THE EYE AND EAR DROPS EXACTLY PRESCRIBED. -FOR FURTHER QUESTIONS, CONTACT DR. OH. Objective - Vital Signs/Intake and Output Vital Signs (last 24 hours): Temp Pulse Resp BP Pulse Ox 97.4 F L 59 L 20 159/82 H 99 01/03/18 07:10 01/03/18 08:00 01/03/18 07:10 01/03/18 07:10 01/03/18 07:10 Intake and Output: 01/03/18 01/03/18 06:59 18:59 Intake Total 1050 Balance 1050 - Medications Medications: Current Medications Acetaminophen (Tylenol 325mg Tab) 650 mg PO Q6 PRN PRN Reason: Pain, moderate (4-7) Last Admin: 01/03/18 10:40 Dose: 650 mg Alprazolam (Xanax) 0.5 mg PO BID [facility] Last Admin: 01/03/18 10:25 Dose: 0.5 mg Artificial Tears (Artificial Tears Refresh Celluvisc) 0 ml OU BID [facility] Last Admin: 01/03/18 10:00 Dose: Not Given Aspirin (Aspirin Chewable) 81 mg PO DAILY [facility] Last Admin: 01/03/18 10:29 Dose: 81 mg Clopidogrel Bisulfate (Plavix) 75 mg PO DAILY [facility] Last Admin: 01/03/18 10:26 Dose: 75 mg Enoxaparin Sodium (Lovenox) 40 mg SC DAILY [facility] Last Admin: 01/03/18 10:27 Dose: 40 mg Famotidine (Pepcid) 20 mg PO BID [facility] Last Admin: 01/03/18 10:27 Dose: 20 mg Hydrocortisone/Pramoxine (Cortic Ear Drops) 0.25 ml AU QID [facility] Last Admin: 01/03/18 14:16 Dose: Not Given Sodium Chloride (Sodium Chloride 0.9%) 1,000 mls @ 100 mls/hr IV .Q10H [facility] Last Admin: 01/03/18 13:00 Dose: Not Given Insulin Human Regular (Novolin R) 0 unit SC ACHS [facility] PRN Reason: Protocol Last Admin: 01/03/18 11:40 Dose: Not Given Losartan Potassium (Cozaar) 100 mg PO DAILY [facility] Last Admin: 01/03/18 10:28 Dose: 100 mg Metoclopramide HCl (Reglan) 10 mg PO TID PRN PRN Reason: Nausea/Vomiting Metoprolol Succinate (Toprol Xl) 50 mg PO DAILY [facility] Last Admin: 01/03/18 10:26 Dose: 50 mg Rosuvastatin Calcium (Crestor) 10 mg PO HS [facility] Last Admin: 01/02/18 21:21 Dose: 10 mg Fluticasone/Salmeterol (Advair Diskus 250/50) 1 puff INH RQ12 [facility] Tamsulosin HCl (Flomax) 0.4 mg PO DAILY [facility] Last Admin: 01/03/18 11:38 Dose: Not Given - Labs Labs: 01/01/18 18:32 01/01/18 18:32 PT 11.1 SECONDS (9.7-12.2) 01/01/18 18:32 INR 1.0 01/01/18 18:32 APTT 38 SECONDS (21-34) H 01/01/18 18:32
[2018-01-03 16:14] VITALS: BP 179/79; PULSE 58; TEMP 98.2
--- NOTE | 2018-01-03 21:34 | CP.PCM.DIS ---
Provider - Provider Date of Admission: 01/01/18 19:40 Attending physician: aHja Dempsey MD Hospital Course - Lab Results Lab Results: Most Recent Lab Values WBC 5.3 K/uL (4.8-10.8) 01/01/18 18:32 RBC 4.81 Mil/uL (3.80-5.20) 01/01/18 18:32 Hgb 12.5 g/dL (11.0-16.0) 01/01/18 18:32 Hct 38.3 % (34.0-47.0) 01/01/18 18:32 MCV 79.7 fL (81.0-99.0) L 01/01/18 18:32 MCH 26.0 pg (27.0-31.0) L 01/01/18 18:32 MCHC 32.6 g/dL (33.0-37.0) L 01/01/18 18:32 RDW 15.0 % (11.5-14.5) H 01/01/18 18:32 Plt Count 306 K/uL (130-400) 01/01/18 18:32 MPV 8.4 fL (7.2-11.7) 01/01/18 18:32 Neut % (Auto) 47.9 % (50.0-75.0) L 01/01/18 18:32 Lymph % (Auto) 40.4 % (20.0-40.0) H 01/01/18 18:32 [place] % (Auto) 9.8 % (0.0-10.0) 01/01/18 18:32 Eos % (Auto) 1.4 % (0.0-4.0) 01/01/18 18:32 Baso % (Auto) 0.5 % (0.0-2.0) 01/01/18 18:32 Neut # (Auto) 2.6 K/uL (1.8-7.0) 01/01/18 18:32 Lymph # (Auto) 2.1 K/uL (1.0-4.3) 01/01/18 18:32 [place] # (Auto) 0.5 K/uL (0.0-0.8) 01/01/18 18:32 Eos # (Auto) 0.1 K/uL (0.0-0.7) 01/01/18 18:32 Baso # (Auto) 0.0 K/uL (0.0-0.2) 01/01/18 18:32 PT 11.1 SECONDS (9.7-12.2) 01/01/18 18:32 INR 1.0 01/01/18 18:32 APTT 38 SECONDS (21-34) H 01/01/18 18:32 Sodium 144 mmol/L (132-148) 01/01/18 18:32 Potassium 3.8 mmol/L (3.6-5.2) 01/01/18 18:32 Chloride 107 mmol/L (98-107) 01/01/18 18:32 Carbon Dioxide 26 mmol/L (22-30) 01/01/18 18:32 Anion Gap 16 (10-20) 01/01/18 18:32 BUN 14 mg/dL (7-17) 01/01/18 18:32 Creatinine 0.7 mg/dL (0.7-1.2) 01/01/18 18:32 Est GFR ( Amer) > 60 01/01/18 18:32 Est GFR (Non-Af Amer) > 60 01/01/18 18:32 POC Glucose (mg/dL) 126 mg/dL (65-110) H 01/03/18 06:31 Random Glucose 127 mg/dL (65-105) H 01/01/18 18:32 Hemoglobin A1c 6.0 % (4.2-6.5) 01/01/18 18:32 Calcium 9.5 mg/dl (8.6-10.4) 01/01/18 18:32 Total Bilirubin 0.4 mg/dL (0.2-1.3) 01/01/18 18:32 AST 18 U/L (14-36) 01/01/18 18:32 ALT 19 U/L (9-52) 01/01/18 18:32 Alkaline Phosphatase 96 U/L (38-126) 01/01/18 18:32 Troponin I < 0.0120 ng/mL (0.00-0.120) 01/01/18 18:32 Total Protein 7.4 g/dL (6.3-8.3) 01/01/18 18:32 Albumin 4.3 g/dL (3.5-5.0) 01/01/18 18:32 Globulin 3.1 gm/dL (2.2-3.9) 01/01/18 18:32 Albumin/Globulin Ratio 1.4 (1.0-2.1) 01/01/18 18:32 Triglycerides 116 mg/dL (0-149) 01/01/18 18:32 Cholesterol 155 mg/dL (0-199) 01/01/18 18:32 LDL Cholesterol Direct 74 mg/dL (0-129) 01/01/18 18:32 HDL Cholesterol 45 mg/dL (30-70) 01/01/18 18:32 Blood Type A POSITIVE 01/01/18 18: Antibody Screen Negative 01/01/18 18:22 Discharge Plan - Discharge Medications Prescriptions: Carboxymethylcellulose 1% [Artificial Tears Refresh Celluvisc] 1 drop OU BID #1 bottle Aspirin [Aspirin Chewable] 81 mg PO DAILY #30 chew Chloroxylenol/HC/Pramoxine H [Cortic Ear Drops] 1 drop AU QID #1 bottle - Follow Up Plan Condition: FAIR Disposition: HOME/ ROUTINE Instructions: Heart Healthy Diet, Paresthesias (DC), Aspirin, Carboxymethylcellulose Additional Instructions: - SEGUIMIENTO CON EL DR. FANNY TIERNEY ([facility] EN LA OFICINA SEGN SE DISCUTI CON EL DR. DEMPSEY. LA INFORMACIN DE LA OFICINA DE [place] ES: [phone] [place] [address] -CONTINUAR LOS MEDICAMENTOS CASEROS IRINA HABITUALMENTE. -START TOMANDO ASHLEE ASPIRINA PARA BEBS ASHLEE VEZ AL DA SEGN LO PRESCRITO. -EL IVONNE Y EL ODO GOTA EXACTAMENTE IRINA SE PRESCRIBE. -PARA MS PREGUNTAS, CONTACTE A DR. DEMPSEY. -FOLLOW UP WITH DR. FANNY TIERNEY (EARS, NOSE, THROAT DOCTOR) IN THE OFFICE DISCUSSED WITH DR. DEMPSEY. DR. TIERNEY'S OFFICE INFORMATION IS: [phone] [place] [address] -CONTINUE HOME MEDICATIONS USUAL. -START TAKING A BABY ASPIRIN ONCE A DAY PRESCRIBED. -TAKE THE EYE AND EAR DROPS EXACTLY PRESCRIBED. -FOR FURTHER QUESTIONS, CONTACT DR. DEMPSEY. Referrals: Dwayne Cage MD [Staff Provider] - Haja Dempsey MD [Staff Provider] - Susana Gagnon MD [Staff Provider] -
== END 2018-01-03 17:00 | disposition home or self-care (01) ==
LOC: C.ER 18:00 → C.9E 19:40 → C.6T 01-02 08:27
PROVIDERS: ADMIT Internal Medicine; ATTEND Internal Medicine
DX: R20.2 Paresthesia of skin (principal); E78.5 Hyperlipidemia, unspecified; E66.01 Morbid (severe) obesity due to excess calories; F32.9 Major depressive disorder, single episode, unspecified; F41.9 Anxiety disorder, unspecified; I10 Essential (primary) hypertension; I65.29 Occlusion and stenosis of unspecified carotid artery; Z86.73 Personal history of transient ischemic attack (TIA), and cerebral infarction without residual deficits
CPT/HCPCS: 70450; 71045; 80053; 80061; 82948; 83036; 84484; 85025; 85610; 85730; 86850; 86900; 92523; 93005; 93880; 97166; 97530; 99285; G0378; G8987; G8988; G9174; G9175; G9176; J1650; J7030